=== PATIENT | male | born 1965 | race Caucasian/White ===

== ENCOUNTER → 2017-03-15 | Outpatient (CLI) | payer OTHER | LOC: RAD 15:45 | DX: M48.06 Spinal stenosis, lumbar region (principal) ==

== ENCOUNTER → 2020-03-10 | Day surgery (SDC) | payer BC, OTHER ==
[~2020-03-10] VITALS: Ht 172.7 cm; Wt 79.4 kg
[~2020-03-10] MED LIST: ASPIR 8181 M1 PO; ATORVASTATIN CA20 MG PO; CO-ENZYME Q-1010 MG PO; LUTEIN20 MG PO; NORCO 5-325 TA1 EAC1 PO; PRILOSEC OTC20 MG PO; VALSARTAN80 MG PO
--- NOTE | 2020-03-10 08:54 | EKG ---
[facility] [place] [address] ELECTROCARDIOGRAM REPORT Name: DEBORA ROBERSON Room #: [facility] M.R.#: [id number] Admission: 03/10/20 Attend Phys: Spike Broderick MD Discharge: Date of : 63 Report #: [id number] THIS REPORT FOR: cc: Bishop Zhao MD, Rene P. MD Lundgren,Lito Painter MD [facility] ~ THIS REPORT FOR: //name// [facility] Test Date: 2020-03-10 Test Time: 08:47:09 Pat Name: DEBORA ROBERSON Department: Room: Gender: Copyman: Francy DRUMMOND : 1965 Requested By: Julissa Jimenes Order Number: [id number] MD: Lito Padilla Measurements Intervals Scammon Rate: 58 P: 4 AL: 178 QRS: 56 QRSD: 116 T: -18 QT: 424 QTc: 417 Interpretive Statements Sinus bradycardia Otherwise no significant abnormality No previous ECG available for comparison Electronically Signed On 03-10-2020 8:52:33 CDT by Lito Padilla [email or web address] <ELECTRONICALLY SIGNED> By: Lito Padilla MD, [facility] 03/10/20 0852 Lito Padilla MD, [facility] /EPI
[2020-03-10 09:09] VITALS: BP 147/77
[2020-03-10 09:27] LABS: HEMATOCRIT 43.3 % (42.0-52.0); HEMOGLOBIN 14.5 gm/dL (14.0-18.0)
[2020-03-10 12:21] VITALS: BP 147/77
--- NOTE | 2020-03-12 15:34 | O ---
[facility] [place] [address] OPERATIVE REPORT Name: DEBORA ROBERSON Room #: [facility] M.R.#: [id number] Admission: 03/10/20 Attend Phys: Spike Broderick MD Discharge: Date of : 63 Report #: [id number] THIS REPORT FOR: cc: Bishop Zhao MD, Rene P. MD Chu, Peter Y. MD ~ CC: Spike Zhao MD PREOPERATIVE DIAGNOSIS: Symptomatic painful left inguinal hernia. POSTOPERATIVE DIAGNOSIS: Painful left indirect inguinal hernia. PROCEDURES PERFORMED: Laparoscopic properitoneal repair of left inguinal hernia with large 3DMax lightweight mesh. ANESTHESIA: General. SURGEON: Spike Broderick MD COMPLICATIONS: None. ESTIMATED BLOOD LOSS: 5 mL. PROCEDURE NOTE: With the patient under general anesthesia, Melo catheter was placed. Abdomen was prepped and draped in the sterile fashion. Timeout was performed. A 0.25% Marcaine was injected in the skin and subcutaneous tissue lateral to the umbilicus. After anesthetizing the skin and subcutaneous tissue, a 2 cm incision was made. The fascia was identified. The anterior fascia was incised transversely. The muscle was spread. The space between the rectus muscle and the posterior fascia was dissected bluntly with fingertip inferiorly. A balloon trocar was placed through the same space. The CO2 was placed. A 5 mm trocar was placed in the properitoneal space under visualization. Using cautery and blunt dissection, the properitoneal space was opened up. Inferiorly, the pubic bone, Shailesh's ligaments is not well visualized due to previous scar. There was some linear scar that up to the wall up to the pubic area that was divided. The properitoneal space was opened up. There is no direct defect. The lateral wall was opened up lateral to the inferior epigastric vessel. Indirect hernia sac was found. The hernia sac was reduced without difficulty. The hernia sac was identified free from the underlying cord structure and then completely brought back into the properitoneal space a moderate size hernia sac. There was also a moderate size cord lipoma that was found and this was reduced in the properitoneal space. The patient's internal ring was fairly medial and appears that there is very little portion of the floor of the canal. There is no direct defect found. The internal ring is quite dilated. A large 3DMax left-sided lightweight mesh was placed. This was [address] [address] OPERATIVE REPORT Name: DEBORA ROBERSON XOCHITL Room #: [facility] M.R.#: [id number] Admission: 03/10/20 Attend Phys: Spike Broderick MD Discharge: Date of : 63 Report #: [id number] placed through the 11 mm trocar then opened up well. This was positioned. Lateral superiorly, the mesh was tacked to the abdominal wall, inferior medially tacked to the area of Shailesh ligament and this was done mostly by feel, superomedially to the rectus muscle. The mesh seated well. The hernia sac and lipoma is medial to the mesh and is away from the internal ring. CO2 was then evacuated. There was intraperitoneal air. This was evacuated through opening the posterior fascia at the umbilical area and then opened the peritoneum releasing the air. The posterior fascia was closed with a running [id number] 0 Vicryl suture. The anterior fascia was closed with 0 Vicryl [id number] x2. Skin was irrigated. Skin was then closed with 5-0 PDS. Steri-Strip, Band-Aids applied. The patient was awakened and taken to recovery room. Melo catheter was removed. <ELECTRONICALLY SIGNED> By: Spike Broderick MD 03/12/20 1534 [id number] [id number] Spike Broderick MD /nt
== END | disposition home or self-care (01) ==
LOC: OR 08:11
PROVIDERS: Anesthesiology
DX: K40.90 Unilateral inguinal hernia, without obstruction or gangrene, not specified as recurrent (principal); I10 Essential (primary) hypertension; E78.5 Hyperlipidemia, unspecified; K21.9 Gastro-esophageal reflux disease without esophagitis; Z98.890 Other specified postprocedural states; Z79.899 Other long term (current) drug therapy; Z85.46 Personal history of malignant neoplasm of prostate
CPT/HCPCS: 50010; 50101; 50249; 50411; 50455; 50507; 50555; 50848; 53065; 53307; 56525; 56526; 56719; 62110; 62900; 70005